=== PATIENT | male | born 1955 | race Caucasian/White ===

== ENCOUNTER 2017-03-07 23:58 | Inpatient (IN) | payer MEDICAID ==
[~2017-03-07] VITALS: Ht 167.6 cm; Wt 117.0 kg
[~2017-03-07 23:58] MED LIST: AMLO10TA2 PO; ASPI-621 PO; ATOR20TA9 PO; GABA300C10 PO; HYDR-3240 PO; INDO50CA PO; LISI-170 PO; METF500T27 PO; NABU500T PO; TICA90TA PO
[2017-03-08] MEDS ORDERED: NITROGLYCERIN SINGLE TAB 0.4 MG SL ONE (00:19)
[2017-03-08] MEDS ORDERED: ASPIRIN 81 MG TABLET CHEW ONE (00:19)
[2017-03-08] MEDS ORDERED: NITROGLYCERIN SINGLE TAB 0.4 MG SL PRN (00:30)
[2017-03-08] MEDS ORDERED: ASPIRIN 81 MG TABLET CHEW PO ONE (00:30)
[2017-03-08 00:49] LABS: BLOOD UREA NITROGEN 17 mg/dL (7-18)
[2017-03-08 00:54] LABS: IS PT STATUS REG ER OR PRE ER? YES
[2017-03-08] MEDS ORDERED: TAMS0.4C2 PO (01:28)
[2017-03-08] MEDS ORDERED: CLOP75TA PO (01:28)
[2017-03-08] MEDS ORDERED: FLUT1DIS IH (01:28)
[2017-03-08] MEDS ORDERED: GABA300C10 PO (01:28)
[2017-03-08] MEDS ORDERED: LOSA25TA5 PO (01:28)
[2017-03-08] MEDS ORDERED: MORPHINE SULFATE 4 MG/ML, 1ML ONE (01:35)
[2017-03-08] MEDS ORDERED: ONDANSETRON 2MG/ML, 2ML ONE (01:35)
[2017-03-08] MEDS ORDERED: ONDANSETRON 2MG/ML, 2ML IVPush PRN (02:00)
[2017-03-08] MEDS ORDERED: ONDANSETRON 2MG/ML, 2ML IVPush ONE (02:00)
[2017-03-08] MEDS ORDERED: MORPHINE SULFATE 4 MG/ML, 1ML IVPush PRN ×2 (02:00)
[2017-03-08 03:28] VITALS: BP 110/66
[2017-03-08 03:58] LABS: IS PT STATUS REG ER OR PRE ER? NO
[2017-03-08] MEDS: FLUTICASONE NASAL SPRAY 16GM NAS SCH ×3 (05:21→20:29)
[2017-03-08] MEDS: INSULIN ASPART 100 UNITS/ML, PEN SQ-INSULIN SCH ×4 (08:00→20:30)
[2017-03-08 08:15] VITALS: BP 111/67
[2017-03-08] MEDS ORDERED: FLUTICASONE NASAL SPRAY 16GM NAS SCH (09:00)
[2017-03-08] MEDS ORDERED: FLUTICASONE/VILANTEROL 100-25MCG/INH INH SCH (09:00)
[2017-03-08] MEDS: FAMOTIDINE 20 MG/2 ML IVPush SCH ×2 (09:40→20:29)
[2017-03-08] MEDS: ENOXAPARIN 40 MG/0.4 ML SQ SCH (09:40)
[2017-03-08] MEDS: TAMSULOSIN 0.4 MG CAP.ER.24H PO SCH (09:41)
[2017-03-08] MEDS: GABAPENTIN 300 MG CAPSULE PO SCH ×3 (09:41→20:29)
[2017-03-08] MEDS: ASPIRIN 81 MG TABLET EC PO SCH (09:41)
[2017-03-08] MEDS: CLOPIDOGREL 75 MG TABLET PO SCH (09:42)
[2017-03-08] MEDS: AMLODIPINE 5 MG TABLET PO SCH (09:42)
[2017-03-08] MEDS: LOSARTAN 25MG TABLET PO SCH (09:42)
[2017-03-08] MEDS: FLUTICASONE/VILANTEROL 100-25MCG/INH INH SCH (10:05)
[2017-03-08 10:12] LABS: IS PT STATUS REG ER OR PRE ER? NO
[2017-03-08 12:14] LABS: ASPARTATE AMINO TRANSFERASE 21 U/L (15-37)
[2017-03-08 14:30] VITALS: BP 106/68
[2017-03-08 16:13] VITALS: BP 104/64
[2017-03-08] MEDS: OXYcodone IR 5MG TABLET PO PRN ×2 (17:08→18:07)
[2017-03-08 20:00] VITALS: BP 143/75
[2017-03-08] MEDS: ATORVASTATIN 20 MG TABLET PO SCH (20:29)
[2017-03-09 02:31] VITALS: BP 139/71
[2017-03-09 07:00] VITALS: BP 114/68
[2017-03-09] MEDS: INSULIN ASPART 100 UNITS/ML, PEN SQ-INSULIN SCH ×4 (07:00→21:00)
[2017-03-09] MEDS: CLOPIDOGREL 75 MG TABLET PO SCH (08:13)
[2017-03-09] MEDS: AMLODIPINE 5 MG TABLET PO SCH (08:13)
[2017-03-09] MEDS: LOSARTAN 25MG TABLET PO SCH (08:14)
[2017-03-09] MEDS: ASPIRIN 81 MG TABLET EC PO SCH (08:14)
[2017-03-09] MEDS: FLUTICASONE NASAL SPRAY 16GM NAS SCH ×2 (08:14→22:14)
[2017-03-09] MEDS: TAMSULOSIN 0.4 MG CAP.ER.24H PO SCH (08:14)
[2017-03-09] MEDS: FLUTICASONE/VILANTEROL 100-25MCG/INH INH SCH (08:14)
[2017-03-09] MEDS: GABAPENTIN 300 MG CAPSULE PO SCH ×3 (08:14→22:14)
[2017-03-09] MEDS: ENOXAPARIN 40 MG/0.4 ML SQ SCH (08:15)
[2017-03-09] MEDS: OXYcodone IR 5MG TABLET PO PRN (09:05)
[2017-03-09] MEDS: FAMOTIDINE 20 MG TABLET PO SCH ×2 (09:05→22:14)
[2017-03-09 14:00] VITALS: BP 127/68
[2017-03-09] MEDS ORDERED: SENNA/DOCUSATE TABLET PO PRN (16:00)
[2017-03-09] MEDS ORDERED: MAGNESIUM CITRATE 300ML ORAL SOL PO ONE (17:00)
[2017-03-09] MEDS ORDERED: ISOSORBIDE MONONITRATE ER 30 MG TABLET PO SCH (18:00)
[2017-03-09 20:00] VITALS: BP 106/67
[2017-03-09] MEDS ORDERED: ATORVASTATIN 20 MG TABLET PO SCH (21:00)
[2017-03-09] MEDS: ATORVASTATIN 20 MG TABLET PO SCH (22:14)
[2017-03-10 01:50] VITALS: BP 95/59
[2017-03-10] MEDS: INSULIN ASPART 100 UNITS/ML, PEN SQ-INSULIN SCH ×2 (07:00→11:00)
[2017-03-10 07:36] VITALS: BP 137/66
[2017-03-10] MEDS: FLUTICASONE/VILANTEROL 100-25MCG/INH INH SCH (07:53)
[2017-03-10] MEDS: FLUTICASONE NASAL SPRAY 16GM NAS SCH (07:53)
[2017-03-10] MEDS: ENOXAPARIN 40 MG/0.4 ML SQ SCH (07:53)
[2017-03-10] MEDS: CLOPIDOGREL 75 MG TABLET PO SCH (07:54)
[2017-03-10] MEDS: FAMOTIDINE 20 MG TABLET PO SCH (07:54)
[2017-03-10] MEDS: GABAPENTIN 300 MG CAPSULE PO SCH (07:54)
[2017-03-10] MEDS: LOSARTAN 25MG TABLET PO SCH (07:55)
[2017-03-10] MEDS: TAMSULOSIN 0.4 MG CAP.ER.24H PO SCH (07:55)
[2017-03-10] MEDS: ASPIRIN 81 MG TABLET EC PO SCH (07:55)
[2017-03-10 13:13] VITALS: BP 143/78
[2017-03-10] MEDS ORDERED: FAMO20TA7 PO (16:19)
[2017-03-10] MEDS ORDERED: ISOS30TA8 PO (16:19)
[2017-03-10] MEDS ORDERED: SENN1TAB7 PO (16:19)
[2017-03-10] MEDS ORDERED: FLUT16SP NAS (16:19)
[2017-03-11] MEDS ORDERED: SENNA/DOCUSATE TABLET PO SCH (09:00)
== END 2017-03-10 17:56 | disposition home or self-care (01) | DRG 392 ==
LOC: ED 23:59 → EDIP 03-08 01:54 → INTOOBSV 03-08 01:54 → 5SO 03-08 02:58 → 4WST 03-08 18:18 → OBSVTOIN 03-09 14:35
PROVIDERS: ADMIT Internal Medicine; ATTEND Internal Medicine
DX: R14.1 Gas pain (principal); Z68.41 Body mass index [BMI] 40.0-44.9, adult; R07.89 Other chest pain; I25.10 Atherosclerotic heart disease of native coronary artery without angina pectoris; K21.9 Gastro-esophageal reflux disease without esophagitis; I10 Essential (primary) hypertension; E78.5 Hyperlipidemia, unspecified; E11.9 Type 2 diabetes mellitus without complications; M19.90 Unspecified osteoarthritis, unspecified site; F41.9 Anxiety disorder, unspecified; J32.9 Chronic sinusitis, unspecified; K59.00 Constipation, unspecified; K76.0 Fatty (change of) liver, not elsewhere classified; E66.9 Obesity, unspecified; G89.29 Other chronic pain; F32.9 Major depressive disorder, single episode, unspecified; I25.2 Old myocardial infarction; Z79.02 Long term (current) use of antithrombotics/antiplatelets; Z79.82 Long term (current) use of aspirin; Z82.49 Family history of ischemic heart disease and other diseases of the circulatory system; Z95.5 Presence of coronary angioplasty implant and graft
CPT/HCPCS: 36415; 71010; 74000; 76700; 80048; 80076; 82040; 82962; 83880; 84443; 84484; 85025; 93005; 93306; 96374; 96375; G0378; J1650; J2405; S0028

== ENCOUNTER 2017-11-10 06:19 | Emergency (ER) | payer MEDICAID ==
[~2017-11-10] VITALS: Ht 167.6 cm; Wt 118.1 kg
[~2017-11-10 06:19] MED LIST changes: +CLOP75TA PO; +FAMO20TA7 PO; +FLUT16SP NAS; +FLUT1DIS IH; +ISOS30TA8 PO; +LOSA25TA5 PO; +SENN1TAB7 PO; +TAMS0.4C2 PO
[2017-11-10 07:08] VITALS: BP 92/56
== END 2017-11-10 07:20 | disposition home or self-care (01) ==
LOC: ED 07:17
DX: J01.10 Acute frontal sinusitis, unspecified (principal); Z79.899 Other long term (current) drug therapy; E11.9 Type 2 diabetes mellitus without complications; I10 Essential (primary) hypertension; I25.10 Atherosclerotic heart disease of native coronary artery without angina pectoris; M10.9 Gout, unspecified; Z79.84 Long term (current) use of oral hypoglycemic drugs; Z95.5 Presence of coronary angioplasty implant and graft
CPT/HCPCS: 99283